=== PATIENT | male | born 1965 | race Caucasian/White ===

== ENCOUNTER 2023-07-29 03:59 | Emergency (ER) | payer OTHER ==
[2023-07-29 04:26] VITALS: PULSE 87; RESP 18; BMI 28.7
[2023-07-29] MEDS ORDERED: ACETAMINOPHEN 500 MG TABLET (FP) PO ONE (04:31)
[2023-07-29] MEDS ORDERED: LIDOCAINE 5% TOPICAL PATCH TP ONE (04:31)
[2023-07-29] MEDS ORDERED: ACETAMINOPHEN 325 MG TABLET (FP) ONE ×2 (04:32→06:00)
[2023-07-29] MEDS ORDERED: LIDOCAINE 5% TOPICAL PATCH ONE (04:34)
[2023-07-29 05:18] LABS: PROTHROMBIN TIME (PATIENT) 11.6 SEC (9.7-13.0)
[2023-07-29 05:40] LABS: BASO % 0.7 % (0-2.0); EOS % 1.6 % (0-4.5); HEMOGLOBIN 13.8 GM/dL (11.7-16.9); LYMPH % 18.2 % (8-40); MCH 26.3 pg (25.7-33.7); MCHC 32.1 g/dl (32.0-35.9); MEAN CELL VOLUME 81.9 fl (80-96); MEAN PLT VOLUME 10.5 fl (7.5-11.1); MONO % 8.9 % (3.8-10.2); NEUT % 70.6 % (42.8-82.8); PLATELET COUNT 199 10^3/uL (134-434); RBC 5.25 M/mm3 (4.00-5.60); RDW 14.1 % (11.9-15.9); WHITE BLOOD COUNT 9.6 K/mm3 (4.0-10.0)
[2023-07-29 05:55] LABS: POTASSIUM 4.8 mmol/L (3.5-5.1)
[2023-07-29 05:57] LABS: BLOOD UREA NITROGEN 20.3 mg/dL (7-18); CALCIUM 9.1 mg/dL (8.5-10.1)
[2023-07-29 06:03] LABS: BILIRUBIN,TOTAL 0.4 mg/dL (0.2-1); CREATININE 1.3 mg/dL (0.55-1.3); TOT PROT 7.3 g/dl (6.4-8.2)
[2023-07-29] MEDS ORDERED: traMADol HCL 50 MG TABLET PO ONE (09:38)
[2023-07-29] MEDS ORDERED: traMADol HCL 50 MG TABLET ONE (09:39)
[2023-07-29 10:21] VITALS: BP 150/76; TEMP 97.8
[2023-07-29] MEDS ORDERED: KETOROLAC TROMETHAMINE 15 MG/ML VIAL IVPUSH ONE (11:24)
[2023-07-29] MEDS ORDERED: KETOROLAC TROMETHAMINE 15 MG/ML VIAL ONE (11:38)
[2023-07-29] MEDS ORDERED: LIDOCAINE PATCH REMOVAL MC ONE (17:00)
== END 2023-07-29 12:18 | disposition home or self-care (01) ==
LOC: JER 03:59
PROC: 3E0333Z Introduction of Anti-inflammatory into Peripheral Vein, Percutaneous Approach (ICD-10-PCS; principal; 2023-07-29)
DX: M79.652 Pain in left thigh (principal); M79.651 Pain in right thigh; R20.0 Anesthesia of skin
CPT/HCPCS: 36415; 72131-TC; 75635-TC; 80053; 85025; 85610; 85730; 93005; 93010; 93971-TC; 99285-25; Q9967